=== PATIENT | female | born 1990 | race Caucasian/White ===

== ENCOUNTER 2017-07-10 22:51 | Emergency (ER) | payer MEDICAID ==
[2017-07-10 23:30] VITALS: BMI 28.3
[2017-07-10] MEDS ORDERED: Lactated Ringer's 1,000 ML IV SCH (23:30)
[2017-07-11 01:07] LABS: RBC URINE 5 /hpf (0-3); URINE BILIRUBIN NEGATIVE (NEGATIVE); URINE BLOOD NEGATIVE (NEGATIVE); URINE COLOR YELLOW (YELLOW); URINE GLUCOSE (UA) NEG (Normal); URINE KETONE NEGATIVE (NEGATIVE); URINE LEUKOCYTE ESTERASE NEG Leu/uL (Negative); URINE PROTEIN 30 mg/dL (NEGATIVE); WBC URINE 4 /hpf (0-5)
[2017-07-11] MEDS ORDERED: Lactated Ringer's 1,000 ML IV SCH (01:30)
[2017-07-11] MEDS ORDERED: Lactated Ringer's 1,000 ML IV ONE (01:44)
--- NOTE | 2017-07-11 08:04 | OBHP ---
Datetime: 07/10/2017 23:59 IP Adm Impression: , intrauterine IP Admit Plan: Observation/Evaluation Admit Comment, IP Provider: 27 y/o F , IUP@33.1 GA, JEM 08/27/17. pt comes to [facility] c/o sharp low er abdominal pain which started 1 hour ago. constant sharp, 7/10 in severity.no alleviating and aggra vating factors. pt admits seeing little yellow mucus and bleeding/spotting with urination. pt denies nausea, vomiting, visual changes, chest pain or SOB. - positive FM, NO CTX/LOF PNC: Dr. Gonzalez at [place] PNI: no issues with this so far PMH: none PSH: none POBH: , all term except one and 1 Allg: none Meds: PNV SH: no alcohol, smoking or illicit drug use ROS: as per HPI VS: Afebrile, 110/66 and stable FHR reassuring No CTX PE: unremarkable closed cervix speculum exam- no bleeding seen , intact membrane A/P: 27 y/o F , IUP@33.1 GA, JEM 08/27/17. pt comes to [facility] c/o sharp lower abdominal pain - Observe and re-evaluate - IVF - UA and culture - FFN if any CTX seen - monitor CTX/VS/FHR Case discussed and examined with Dr. Colon --- Elva Mercer, PGY-1 addendum: UA is back, will start STAT Keflex 500mg and 1L IVF D/c home with 7 days Keflex 500mg BID discussed with Dr. Colon ---COOPER, PGY-1 OB H addendum: Patient seen and examined by me agree with above assessment and plan and no following clarificatio ns and addition. Patient denies contractions spontaneous rupture of membranes. She stated she noted t he bleeding in her urine when she voided and upon wiping tissue. She denies choroiditis greater than 2 weeks. O: Urine sample with gross hematuria Plan: As above. Increase water intake. Follow-up within 1 week for OB visit. Pelvic Type - PN: Adequate Extremities - PN: Normal Abdomen - PN: Normal Back - PN: Normal Breast - PN: Normal Lungs - PN: Normal Heart - PN: Normal Thyroid - PN: Normal Neurologic - PN: Normal HEENT - PN: Normal General - PN: Normal FHR - Baseline A Provider: 160 Membranes, Provider: Intact Comments, ACOG Physical Exam: closed cervix speculum exam- no bleeding seen , intact membrane Pool Provider: Negative EGA AdmitDate IP: 33.2 Vital Signs Provider: Reviewed; Within Normal Limits IP Chief Complaint: Vaginal bleeding; Maternal discomfort NICHD Variability Prov Fetus A: Moderate 6-25bpm NICHD Accel Fetus A IP Provider: [id number] FHR Category Provider Fetus A: Category I NICHD Decel Fetus A IP Provider: None Dilatation, Provider: 0 Effacement, Provider: thick Station, Provider: high Genitourinary Exam: Normal DTRs - PN: Normal
[2017-07-11 11:19] VITALS: BP 117/54; PULSE 78; TEMP 98.3
== END 2017-07-11 03:00 | disposition home or self-care (01) ==
LOC: H.EROB2 22:51
DX: O47.03 False labor before 37 completed weeks of gestation, third trimester (principal); Z3A.33 33 weeks gestation of pregnancy
CPT/HCPCS: 81003; 99283; J7120